=== PATIENT | female | born 2000 | race Caucasian/White ===

== ENCOUNTER 2022-06-06 01:36 | Inpatient (IN) | payer OTHER, SELFPAY ==
--- NOTE | 2022-05-17 15:04 | PC.NURSE ---
Patient wants to breast feed--explained to her if she is still doing marijuana--breast feeding will be discouraged due to it goes through the milk to baby--Patient verbalized understanding
[2022-06-06] VITALS (151 sets, daily range): BP systolic 94–134; BP diastolic 56–96; PULSE 69–109; RESP 16–18; TEMP 36.2–37; O2SAT 72–100; BMI 25.0
--- OUTSIDE RECORDS SUMMARY | 2022-06-06 02:10 | XMS_ITS ---
Author Name DonalGee paredes Address [address] [place] [address] Organization [facility] Address [address] [place] [address] Care Team Providers Care Industrial Pharmacist Name Role Phone DonalGee paredes Unavailable [phone] PROBLEMS Unknown Problems ALLERGIES No Known Allergies ENCOUNTERS Encounter Location Date Diagnosis [address] [place] [address] Feb, Dental examination Z01.20 IMMUNIZATIONS No Known Immunizations SOCIAL HISTORY Qualifiers Date Never Smoker REASON FOR REFERRAL FUNCTIONAL STATUS PLAN OF CARE Activity Details VITAL SIGNS Blood pressure systolic 101 mm Hg Blood pressure diastolic 64 mm Hg 2021-02 MEDICATIONS No Known Medications PROCEDURES Procedure Date Ordered Result Body Site INTRAORL-PERIAPICAL 1 FILM [id number] Feb 23, 2021 LTD ORAL EVALUATION - PROBLEM FOCUS Feb 23, 2021 RESULTS Name Result Date Reference Range X ray : Dental, PA - First 2021-02-23 REASON FOR VISIT Dental Problem Focus, patient denies covid symptoms, fever and has not been in contact with anyone who has tested positive for covid, pain for the last year Insurance Providers
--- NOTE | 2022-06-06 02:29 | LDADM ---
This patient, Yohannes Copeland, was admitted to Labor/Delivery/Recovery 105 on 06/06/22 at 01:36. Plans for labor, pain management and were discussed with patient. Patient/family oriented to hospital policies and general routines including ID bracelet, bed and alarms, visiting hours, pain management, procedures, bathroom and other care routines, personal items, smoking policy, room service/diet and guest tray routines, infant security routines, and visiting hours. Patient/Family are encouraged to report perceived risks to care and to ask questions if they do not understand what they are told or what they should do. See OBIX for further documentation.
[2022-06-06 03:03] LABS: Basophils Percent Auto 0.2 % (0.2-1.2); Eosinophils Absolute Auto 0.1 K/mm3 (0-0.3); Eosinophils Percent Auto 0.7 % (0-4.4); Hemoglobin 8.8 g/dL (12.0-15.0); Immature Granulocyte Absolute 0.24 K/mm3 (0.00-0.031); Immature Granulocyte Percent A 2.5 % (0-0.5); Lymphocytes Absolute Auto 2.62 K/mm3 (0.9-3.2); Lymphocytes Percent Auto 26.8 % (18.3-44.2); Mean Corpuscular HGB Conc 31.4 g/dl (32-36); Mean Corpuscular Hemoglobin 27.4 pg (26-34); Mean Corpuscular Volume 87.2 fl (80-100); Monocytes Absolute Auto 0.9 K/mm3 (0.1-0.6); Monocytes Percent Auto 9.4 % (2.6-8.5); Neutrophils Absolute Auto 5.9 K/mm3 (1.3-6.7); Neutrophils Percent Auto 60.4 % (45.5-73.1); Nucleated Red Blood Cells Absolute Auto 0.1 K/mm3 (0.0-0.012); Nucleated Red Blood Cells Perc 0.5 % (0.0-0.2); Platelet Count Result 258 k/mm3 (150-375); Red Blood Count 3.21 M/mm3 (4.2-5.4); Red Cell Distribution Width 15.8 % (11.5-14.5); White Blood Count 9.8 K/mm3 (4.5-10.0)
[2022-06-06] MEDS: LACTATED RINGERS 1,000 ML 125 ML IV CONT ×3 (03:15→10:56)
--- NOTE | 2022-06-06 03:53 | WPDANESEPP ---
Anes - Eval Pre Procedure Procedure: LAbor epidural Date/Time: 06/06/22 03:53 Surgeon: Ofelia Preop Diagnosis: Abd pain with contractions Pre Op Diagnosis: SROM Patient Data Age: 21 Gender: F Height: 1.55 m Weight: 60 kg Last Vital Signs Temp 97.4 F L 06/06/22 02:13 Pulse 86 06/06/22 03:45 Resp 16 06/06/22 02:13 BP 116/70 06/06/22 03:45 Pulse Ox 99 06/06/22 03:52 O2 Del Method Room Air 06/06/22 02:27 Allergies Allergy/AdvReac Type Severity Reaction Status Date / Time No Known Allergies Allergy Verified 05/17/22 14:42 Home Medications Medication Instructions Recorded Confirmed Type prenat.vits,stormy,bik-vgeq-rplfr 1 tablet PO DAILY 05/17/22 05/17/22 History Laboratory Tests 06/06/22 06/06/22 06/06/22 02:36 02:36 03:20 WBC 9.8 K/mm3 K/mm3 (4.5-10.0) RBC 3.21 M/mm3 L M/mm3 (4.2-5.4) Hgb 8.8 g/dL L g/dL (12.0-15.0) Hct 28.0 % L % (37.0-47.0) MCV 87.2 fl fl (80-100) MCH 27.4 pg pg (26-34) MCHC 31.4 g/dl L g/dl (32-36) RDW 15.8 % H % (11.5-14.5) Plt Count 258 k/mm3 k/mm3 (150-375) MPV 10.0 fl fl (7.4-10.4) Immature Gran % (Auto) 2.5 % H % (0-0.5) Neut % (Auto) 60.4 % % (45.5-73.1) Lymph % (Auto) 26.8 % % (18.3-44.2) [place] % (Auto) 9.4 % H % (2.6-8.5) Eos % (Auto) 0.7 % % (0-4.4) Baso % (Auto) 0.2 % % (0.2-1.2) Lymph # (Auto) 2.62 K/mm3 K/mm3 (0.9-3.2) [place] # (Auto) 0.9 K/mm3 H K/mm3 (0.1-0.6) Eos # (Auto) 0.1 K/mm3 K/mm3 (0-0.3) Baso # (Auto) 0.0 K/mm3 K/mm3 (0.0-0.1) Abs Immat Gran (auto) 0.24 K/mm3 H K/mm3 (0.00-0.031) Absolute Neuts (auto) 5.9 K/mm3 K/mm3 (1.3-6.7) Absolute Nucleated RBC 0.1 K/mm3 H K/mm3 (0.0-0.012) Nucleated RBC % 0.5 % H % (0.0-0.2) Urine Opiates Screen Pending Urine Methadone Screen Pending Ur Barbiturates Screen Pending Ur Phencyclidine Scrn Pending Ur Amphetamine Screen Pending U Benzodiazepines Scrn Pending Urine Cocaine Screen Pending U Cannabinoids Screen Pending RPR Pending Patient hx anesthesia problems: none Family hx anesthesia problems: none Results Review: All pre-operative results and documents have been reviewed as part of the pre-operative evaluation. [facility] Past Medical History Medical History Anemia Anxiety and not yet delivered Family History Family History Mother Kidney stones Grandparent Diabetes mellitus Cerebrovascular accident Social History Social History Smoking status: Never smoker Substance use: current Last use: 05/15/22 Lack of Transportation: No Lack of Food: Never True Current Housing: I Have Housing Concerned About Future Housing: No Difficulty Paying Gas/Electric Bills: No Difficulty Paying for Meds: No Currently Unemployed: YES Education: High School Diploma/GED Difficulty w/ Childcare or Family Care: No Spiritual care concerns: No Exam Day of Procedure 06/06/22 03:53 Patient weight: normal Heart: regular rate and rhythm Airway: Mallampati scale class II
[2022-06-06 04:01] LABS: Barbiturate Screen Urine Negative (Negative); Benzodiazepines Screen Urine Negative (Negative)
[2022-06-06 04:13] LABS: Amphetamine Screen Urine Negative (Negative); Cannabinoid Screen Urine Positive (Negative); Cocaine Screen Urine Negative (Negative); Methadone Screen Urine Negative (Negative); Opiate Screen Urine Negative (Negative); Phencyclidine Screen Urine Negative (Negative)
[2022-06-06] MEDS: OXYTOCIN 30 UNITS/NS 500 ML 30 UNITS/500 ML BAG 6 UNITS IV CONT (04:45)
[2022-06-06] MEDS: FAMOTIDINE 20 MG/2 ML VIAL IV PUSH (05:34)
[2022-06-06] MEDS: LORATADINE 10 MG TABLET PO (08:30)
[2022-06-06] MEDS: OXYTOCIN 30 UNITS/NS 500 ML 30 UNITS/500 ML BAG 125 UNITS IV CONT (12:12)
--- NOTE | 2022-06-06 13:56 | PM.OBPRVD ---
OB - Delivery Note Procedure Delivery date: 06/06/22 Procedure: Induction method: None Delivery augmentation: Pitocin Laceration Description: Perineal - 1st Degree and Labial Delivery repair: vicryl Quantitative Blood Loss (ml): 100 Anesthesia type: Epidural Baby Date of : 06/06/22 Time of : 11:38 Weeks of gestation at delivery: 39 Weight (pounds): 6 Weight (ounces): 10 score one minute: 9 score five minutes: 9
[2022-06-06] MEDS: WITCH HAZEL 40 PADS 1 PAD TOPICAL (14:24)
[2022-06-06] MEDS: IBUPROFEN 600 MG TABLET PO (15:10)
[2022-06-06] MEDS: DOCUSATE SODIUM 100 MG CAPSULE PO (15:10)
[2022-06-06] MEDS: POLYSACCHARIDE IRON COMPLEX 150 MG CAPSULE PO (15:11)
[2022-06-06] MEDS: LANOLIN (LANSINOH) 7.5 GM CREAM 1 APPLIC TOPICAL (15:12)
--- NOTE | 2022-06-06 15:20 | PC.NURSE ---
Patient transferred to post room #284 via ( w/c ). Support person present. Oriented to unit, room, information board, rooming in, admission packet and security measures. Patient verbalizes understanding.
[2022-06-07 04:48] VITALS: BP 94/58; PULSE 86; RESP 18; TEMP 36.8; O2SAT 99
[2022-06-07 04:54] LABS: Hematocrit 26.4 % (37.0-47.0); Hemoglobin 8.2 g/dL (12.0-15.0)
--- NOTE | 2022-06-07 06:26 | PM.OBDSVD ---
DS: Admitting Diagnosis Discharge Date 06/07/22 Admitting Diagnosis term pregnacy OB - DS: Summary OB Procedures : None OB Procedures Intrapartum: Spontaneous Vag Delivery OB Procedures: : None Time Spent with Patient Time attestation: Total time spent providing and/or coordinating discharge services: DS: Data Data Completed and Pending Labs on day of discharge: Labs from last 24 hours 06/07/22 04:20 Hgb 8.2 L Hct 26.4 L Discharge Plan Discharge Discharging Clinician: Eric Charles Patient Disposition: Home, Self-Care Activity: pelvic rest Diet: regular Patient Instructions: Antibiotic Form Stand Alone Forms: General Discharge Information Follow-up/Referrals: Eric Charles MD [Physician] - Discharge Medications: Continued #2 Tablet 1 tablet PO DAILY Date of admission: 06/06/22 01:36 Primary Care Provider: UNKNOWN,DOCTOR Admitting Provider: Erna Gilbert Attending physician on admission: Erna Gilbert Condition: Stable
--- NOTE | 2022-06-07 06:28 | PM.OBPNVD ---
OB - PN: Subj Subjective Date/time seen: 06/07/22 06:28 Patient comments: no complaints, pain well controlled and tolerating diet OB - PN: Obj Data Labs 06/07/22 04:20 Labs: Laboratory Results - last 24 hr 06/07/22 04:20 Hgb 8.2 L Hct 26.4 L OB - PN A/P Plan day: 2 Plan: routine care and discharge home Time Spent With Patient Time: Total time spent is greater than 50% in coordination of care (as documented) at patient's floor/unit and/or counseling patient: Exam Const: General: comfortable and no acute distress Resp: Effort & Inspection: normal respiratory effort Auscultation: no rales, no rhonchi and no wheezes Cardio: Rate: regular rate Heart sounds: no click, no murmurs and no rubs GI: GI Palp: Yes Soft to palpation and No Tenderness to palpation present (GI) Auscultation: normal bowel sounds Extrem: General: normal to inspection, no pedal edema and no calf tenderness
[2022-06-07 08:05] VITALS: BP 111/74; PULSE 85; RESP 16; TEMP 36.9; O2SAT 99
[2022-06-07 08:06] LABS: Rapid Plasma Reagin Non-Reactive (NonReactive)
[2022-06-07] MEDS: IBUPROFEN 600 MG TABLET PO ×2 (10:10→16:57)
[2022-06-07] MEDS: MULTIVIT/MIN/PREN/FOL AC/IRON TABLET 1 TAB PO (10:11)
[2022-06-07] MEDS: POLYSACCHARIDE IRON COMPLEX 150 MG CAPSULE PO ×2 (10:11→16:57)
[2022-06-07] MEDS: DOCUSATE SODIUM 100 MG CAPSULE PO (10:12)
--- NOTE | 2022-06-07 15:27 | PC.NURSE ---
[id number] Introductions were made, then consulted with patient to assess needs related to . Mother led the conversation with her?plans to feed?her infant and the?experience so far with no pain. Resources provided for inpatient and outpatient services using mom/baby guide. Mother voiced understanding of information and requests assistance. Mother works well with her infant with encouragement and education. Encouraged understanding of the benefits of skin to skin (unwrapping and placing vertically on her chest), responsive feeding and how to watch for early feeding signs, frequency of feeding on demand about every 8-12 times in 24 hours (every 2-3 hours), milk production, duration of feeding, signs of adequate intake/output and how to record on the feeding sheet. Reviewed positioning and ear, shoulder, hip alignment, supporting the breast, asymmetrical latch (off-center), and leading with the chin with a big open side gape. latched optimally to the left breast in cross cradle position. Education given to mother of how to visualize suck/swallow ratios and drinking at the breast. was able to maintain latch without discomfort to mother. Nipple care reviewed with optimal latch and good positioning. Resources used to facilitate learning were used with the tool, mom and baby guide. Mother voiced understanding of responsive feedings, stimulating with skin to skin, touch, talking to infant to encourage if it has been 2 -3 hours since the start of the last , to call if infant does not latch or there is discomfort with . Reported to the primary RN.
[2022-06-07 20:45] VITALS: BP 115/74; PULSE 81; RESP 16; TEMP 36.6; O2SAT 100
[2022-06-08 07:10] VITALS: BP 118/78; PULSE 68; RESP 16; TEMP 37.1; O2SAT 98
--- NOTE | 2022-06-08 08:04 | PM.OBPNVD ---
OB - PN: Subj Subjective Date/time seen: 06/08/22 08:04 Patient comments: no complaints, pain well controlled and tolerating diet OB - PN: Obj Data Labs 06/07/22 04:20 Labs: Laboratory Results - last 24 hr 06/06/22 02:36 RPR Non-reactive OB - PN A/P Plan day: 2 Plan: routine care and discharge home Time Spent With Patient Time: Total time spent is greater than 50% in coordination of care (as documented) at patient's floor/unit and/or counseling patient: Exam Const: General: comfortable and no acute distress Resp: Effort & Inspection: normal respiratory effort Auscultation: no rales, no rhonchi and no wheezes Cardio: Rate: regular rate Heart sounds: no click, no murmurs and no rubs GI: GI Palp: Yes Soft to palpation and No Tenderness to palpation present (GI) Auscultation: normal bowel sounds Extrem: General: normal to inspection, no pedal edema and no calf tenderness
--- NOTE | 2022-06-08 08:05 | PM.OBDSVD ---
DS: Admitting Diagnosis Discharge Date 05/08/23 Admitting Diagnosis Term preganancy OB - DS: Summary OB Procedures : None OB Procedures Intrapartum: Spontaneous Vag Delivery OB Procedures: : None Time Spent with Patient Time attestation: Total time spent providing and/or coordinating discharge services: DS: Data Data Completed and Pending Labs on day of discharge: Labs from last 24 hours 06/06/22 02:36 RPR Non-reactive Discharge Plan Discharge Discharging Clinician: Eric Charles Patient Disposition: Home, Self-Care Activity: pelvic rest Diet: regular Stand Alone Forms: General Discharge Information Follow-up/Referrals: Eric Charles MD [Physician] - Discharge Medications: Continued #2 Tablet 1 tablet PO DAILY Date of admission: 06/06/22 01:36 Primary Care Provider: UNKNOWN,DOCTOR Admitting Provider: Erna Gilbert Attending physician on admission: Erna Gilbert Condition: Stable
[2022-06-08] MEDS: IBUPROFEN 600 MG TABLET PO (09:13)
[2022-06-08] MEDS: POLYSACCHARIDE IRON COMPLEX 150 MG CAPSULE PO (09:14)
[2022-06-08] MEDS: MULTIVIT/MIN/PREN/FOL AC/IRON TABLET 1 TAB PO (09:14)
[2022-06-08] MEDS: DOCUSATE SODIUM 100 MG CAPSULE PO (09:14)
--- NOTE | 2022-06-08 13:15 | PC.NURSE ---
[id number] Mother led the conversation with her experience and plan to feed her so far and her ability to independently latch optimally without discomfort. RN encouraged skin to skin and mother demonstrated independently latching her optimally to the right breast using cross cradle and states has gone better since working with RN. Mother denies pain with and is feeding appropriately for growth of and understands stimulating infant to eat if needed. Infant has had adequate feedings in the last 24 hours meets the outcomes for weight, output and jaundice at this time. Mother states she is confident to continue effectively her at home or when to call for assistance and denies any additional assistance or education at this time. Mother states she doesn't plan on using cannabis with and was advised to not use while her infant. Reinforced understanding of milk production, transition of milk, signs of adequate intake, prevention/relief of engorgement, responsive after visualizing feeding cues, the different methods of stimulating to breastfeed 2-3 hours after the start of the last feeding, community resources, medication information reviewed per [facility] and when to call a provider using the mom and baby guide. Mother voiced understanding of the education shared. Reported to the primary RN.
--- NOTE | 2022-06-08 15:08 | PC.NURSE ---
[id number] Patient was given the opportunity to view the discharge video Mother & Baby Care, The First Two Weeks and to ask questions. Patient declined viewing the video and has been given the mother/baby guide for home reference. Will view this at home.
[2022-06-09 11:07] VITALS: BP 114/75; PULSE 95; RESP 16; TEMP 37.2; O2SAT 99
== END 2022-06-08 14:20 | disposition home or self-care (01) | DRG 663 ==
LOC: ANHLDR 02:12 → ANHOB2 06-07 06:27 → ANHLDR 06-10 06:41 → ANHOB2 06-10 06:41
PROVIDERS: Admitting Provider Obstetrics & Gynecology; Visit Provider Obstetrics & Gynecology
DX: D64.9 Anemia, unspecified (principal); O99.02 Anemia complicating childbirth; O36.8330 Maternal care for abnormalities of the fetal heart rate or rhythm, third trimester, not applicable or unspecified; O70.0 First degree perineal laceration during delivery; Z37.0 Single live birth; Z3A.39 39 weeks gestation of pregnancy
CPT/HCPCS: 36415; 80307; 84112; 85014; 85018; 85025; 86592; 86850; 86900; 86901; A9270; J2590; J2795; J7120

== ENCOUNTER 2024-06-01 06:01 | Inpatient (IN) | payer OTHER, SELFPAY ==
[2024-06-01] VITALS (123 sets, daily range): BP systolic 84–128; BP diastolic 44–100; PULSE 64–108; RESP 14–16; TEMP 36.3–37.3; O2SAT 90–100; BMI 25.8
--- NOTE | 2024-06-01 06:32 | LDADM ---
This patient, Yohannes Copeland, was admitted to Labor/Delivery/Recovery 104 on 06/01/24 at 06:01. Plans for labor, pain management and were discussed with patient. Patient/family oriented to hospital policies and general routines including ID bracelet, bed and alarms, visiting hours, pain management, procedures, bathroom and other care routines, personal items, smoking policy, room service/diet and guest tray routines, infant security routines, and visiting hours. Patient/Family are encouraged to report perceived risks to care and to ask questions if they do not understand what they are told or what they should do. See OBIX for further documentation.
--- NOTE | 2024-06-01 06:47 | WPDANESEPP ---
Anes - Eval Pre Procedure Procedure: labor epidural Date/Time: 06/01/24 06:47 Surgeon: adeline Preop Diagnosis: pain during labor Pre Op Diagnosis: Induction of Labor Patient Data Age: 23 Gender: F Height: 1.55 m Weight: 62 kg Last Vital Signs Pulse 83 06/01/24 06:36 BP 98/64 L 06/01/24 06:36 O2 Del Method Room Air 06/01/24 06:31 Allergies Allergy/AdvReac Type Severity Reaction Status Date / Time No Known Allergies Allergy Verified 05/12/24 12:04 Home Medications ?Medication ?Instructions ?Recorded ?Confirmed ?Type prenat.vits,stormy,sno-uoov-fyayb 1 tablet PO DAILY 05/17/22 06/01/24 History Laboratory Tests 06/01/24 06:20 WBC Pending RBC Pending Hgb Pending Hct Pending MCV Pending MCH Pending MCHC Pending RDW Pending Plt Count Pending MPV Pending Immature Gran % (Auto) Pending Neut % (Auto) Pending Lymph % (Auto) Pending [place] % (Auto) Pending Eos % (Auto) Pending Baso % (Auto) Pending Lymph # (Auto) Pending [place] # (Auto) Pending Eos # (Auto) Pending Baso # (Auto) Pending Abs Immat Gran (auto) Pending Absolute Neuts (auto) Pending Absolute Nucleated RBC Pending Nucleated RBC % Pending RPR Pending HIV 1&2 Ab/P24 Ag 4thGn Pending Patient hx anesthesia problems: none Family hx anesthesia problems: none Results Review: All pre-operative results and documents have been reviewed as part of the pre-operative evaluation. [facility] Past Medical History Medical History Anemia Anxiety and not yet delivered Family History Family History Mother Kidney stones Grandparent Diabetes mellitus Cerebrovascular accident Social History Social History Smoking status: Former smoker Tobacco type: e-cigarettes/vaping Second hand tobacco smoke exposure: No Substance use: never Last use: 05/15/22 Do You Feel Safe in your Home?: Yes Lack of Transportation: No Lack of Food: Never True Current Housing: I Have Housing Concerned About Future Housing: No Difficulty Paying Gas/Electric Bills: No Difficulty Paying for Meds: No Currently Unemployed: No Education: High School Diploma/GED Difficulty w/ Childcare or Family Care: No Spiritual care concerns: No Exam Day of Procedure 06/01/24 06:47
[2024-06-01 06:48] LABS: Basophils Percent Auto 0.4 % (0.2-1.2); Eosinophils Absolute Auto 0.2 K/mm3 (0-0.3); Eosinophils Percent Auto 2.6 % (0-4.4); Hematocrit 31.5 % (37.0-47.0); Hemoglobin 10.4 g/dL (12.0-15.0); Immature Granulocyte Absolute 0.06 K/mm3 (0.00-0.031); Immature Granulocyte Percent A 0.6 % (0-0.5); Lymphocytes Absolute Auto 2.63 K/mm3 (0.9-3.2); Lymphocytes Percent Auto 28.3 % (18.3-44.2); Mean Corpuscular Hemoglobin 29.6 pg (26-34); Mean Corpuscular Volume 89.7 fl (80-100); Mean Platelet Volume 9.4 fl (7.4-10.4); Monocytes Absolute Auto 0.7 K/mm3 (0.1-0.6); Monocytes Percent Auto 7.3 % (2.6-8.5); Neutrophils Absolute Auto 5.6 K/mm3 (1.3-6.7); Neutrophils Percent Auto 60.8 % (45.5-73.1); Platelet Count Result 204 k/mm3 (150-375); Red Blood Count 3.51 M/mm3 (4.2-5.4); Red Cell Distribution Width 14.1 % (11.5-14.5); White Blood Count 9.3 K/mm3 (4.5-10.0)
[2024-06-01] MEDS: LACTATED RINGERS 1,000 ML 125 ML IV CONT ×2 (07:17→09:46)
[2024-06-01] MEDS: OXYTOCIN 30 UNITS/NS 500 ML 30 UNITS/500 ML BAG IV CONT (07:18)
[2024-06-01 07:25] LABS: Rapid Plasma Reagin Non-Reactive (NonReactive)
[2024-06-01 07:37] LABS: HIV 1/2 Ab P24 Ag Result Negative (Negative)
--- NOTE | 2024-06-01 12:31 | PM.IMHP ---
H&P: HPI History of Present Illness Date/Time: 06/01/24 12:31 Chief Complaint: elective induction of labor Narrative: Patient is a 23 year old who presents for induction of labor. her has been uncomplicated. She denies strong contractions, leakage of fluid or vaginal bleeding. She reports good movement. Review of Systems Review of Systems: All systems reviewed & are unremarkable except as noted in HPI and below PMFSH Past Medical History Medical History Anxiety Anemia and not yet delivered Family History Family History Mother Kidney stones Grandparent Diabetes mellitus Cerebrovascular accident Social History Social History Smoking status: Former smoker Tobacco type: e-cigarettes/vaping Second hand tobacco smoke exposure: No Substance use: never Last use: 05/15/22 Do You Feel Safe in your Home?: Yes Lack of Transportation: No Lack of Food: Never True Current Housing: I Have Housing Concerned About Future Housing: No Difficulty Paying Gas/Electric Bills: No Difficulty Paying for Meds: No Currently Unemployed: No Education: High School Diploma/GED Difficulty w/ Childcare or Family Care: No Spiritual care concerns: No Meds Home Medications and Allergies Home Medications ?Medication ?Instructions ?Recorded ?Confirmed ?Type prenat.vits,stormy,nru-edoc-igcyr 1 tablet PO DAILY 05/17/22 06/01/24 History Allergies Allergy/AdvReac Type Severity Reaction Status Date / Time No Known Allergies Allergy Verified 05/12/24 12:04 Vital Signs Vital Signs - 24 hr 06/01/24 06:31 06/01/24 06:36 06/01/24 07:30 Temperature 97.8 F Pulse Rate 83 Respiratory Rate 16 Blood Pressure 98/64 L Pulse Oximetry Oxygen Delivery Room Air 06/01/24 08:39 06/01/24 08:45 06/01/24 09:00 Temperature Pulse Rate 90 85 79 Respiratory Rate Blood Pressure 128/73 117/74 103/58 L Pulse Oximetry Oxygen Delivery 06/01/24 09:15 06/01/24 09:21 06/01/24 09:26 Temperature Pulse Rate 88 Respiratory Rate Blood Pressure 111/67 Pulse Oximetry 99 99 Oxygen Delivery 06/01/24 09:31 06/01/24 09:36 06/01/24 09:41 Temperature Pulse Rate 82 Respiratory Rate Blood Pressure 105/86 Pulse Oximetry 99 96 97 Oxygen Delivery 06/01/24 09:42 06/01/24 09:43 06/01/24 09:45 Temperature Pulse Rate 83 83 76 Respiratory Rate Blood Pressure 114/62 109/68 103/59 L Pulse Oximetry Oxygen Delivery 06/01/24 09:46 06/01/24 09:47 06/01/24 09:48 Temperature 97.4 F L Pulse Rate 83 Respiratory Rate Blood Pressure 104/63 Pulse Oximetry 96 Oxygen Delivery 06/01/24 09:51 06/01/24 09:52 06/01/24 09:55 Temperature Pulse Rate 81 88 Respiratory Rate Blood Pressure 100/62 109/69 Pulse Oximetry 95 Oxygen Delivery 06/01/24 09:56 06/01/24 09:57 06/01/24 10:01 Temperature Pulse Rate 84 81 Respiratory Rate Blood Pressure 107/66 114/84 Pulse Oximetry 100 98 Oxygen Delivery 06/01/24 10:04 06/01/24 10:06 06/01/24 10:07 Temperature Pulse Rate 85 77 Respiratory Rate Blood Pressure 106/64 116/67 Pulse Oximetry 97 Oxygen Delivery 06/01/24 10:09 06/01/24 10:11 06/01/24 10:13 Temperature Pulse Rate 81 82 Respiratory Rate Blood Pressure 117/69 117/100 H Pulse Oximetry 98 Oxygen Delivery 06/01/24 10:15 06/01/24 10:16 06/01/24 10:19 Temperature Pulse Rate 79 78 75 Respiratory Rate Blood Pressure 117/63 107/64 105/77 Pulse Oximetry 99 95 Oxygen Delivery 06/01/24 10:20 06/01/24 10:21 06/01/24 10:24 Temperature Pulse Rate 80 88 Respiratory Rate Blood Pressure 111/72 97/74 L Pulse Oximetry 98 Oxygen Delivery 06/01/24 10:25 06/01/24 10:28 06/01/24 10:30 Temperature Pulse Rate 89 78 Respiratory Rate Blood Pressure 104/60 105/64 Pulse Oximetry 99 99 Oxygen Delivery 06/01/24 10:33 06/01/24 10:35 06/01/24 10:36 Temperature Pulse Rate 82 91 Respiratory Rate Blood Pressure 106/61 102/65 Pulse Oximetry 99 Oxygen Delivery 06/01/24 10:40 06/01/24 10:42 06/01/24 10:45 Temperature Pulse Rate 87 87 Respiratory Rate Blood Pressure 84/51 L 107/65 Pulse Oximetry 99 99 Oxygen Delivery 06/01/24 10:45 06/01/24 10:45 06/01/24 10:50 Temperature Pulse Rate Respiratory Rate Blood Pressure Pulse Oximetry 99 99 99 Oxygen Delivery 06/01/24 10:52 06/01/24 10:54 06/01/24 10:59 Temperature Pulse Rate Respiratory Rate Blood Pressure Pulse Oximetry 98 96 90 Oxygen Delivery 06/01/24 11:01 06/01/24 11:04 06/01/24 11:09 Temperature Pulse Rate 70 Respiratory Rate Blood Pressure 85/47 L Pulse Oximetry 95 96 Oxygen Delivery 06/01/24 11:14 06/01/24 11:16 06/01/24 11:19 Temperature Pulse Rate 72 Respiratory Rate Blood Pressure 93/56 L Pulse Oximetry 96 97 Oxygen Delivery 06/01/24 11:24 06/01/24 11:29 06/01/24 11:30 Temperature Pulse Rate 68 Respiratory Rate Blood Pressure 84/46 L Pulse Oximetry 96 96 Oxygen Delivery 06/01/24 11:34 06/01/24 11:35 06/01/24 11:40 Temperature Pulse Rate Respiratory Rate Blood Pressure Pulse Oximetry 97 95 97 Oxygen Delivery 06/01/24 11:45 06/01/24 11:50 06/01/24 11:54 Temperature Pulse Rate 85 Respiratory Rate Blood Pressure 106/68 Pulse Oximetry 97 99 95 Oxygen Delivery 06/01/24 11:59 06/01/24 12:00 06/01/24 12:04 Temperature Pulse Rate 73 Respiratory Rate Blood Pressure 109/74 Pulse Oximetry 96 97 Oxygen Delivery 06/01/24 12:09 06/01/24 12:14 06/01/24 12:15 Temperature Pulse Rate 75 Respiratory Rate Blood Pressure 110/68 Pulse Oximetry 96 97 Oxygen Delivery 06/01/24 12:19 06/01/24 12:22 06/01/24 12:27 Temperature Pulse Rate Respiratory Rate Blood Pressure Pulse Oximetry 96 94 99 Oxygen Delivery 06/01/24 12:31 Temperature Pulse Rate 72 Respiratory Rate Blood Pressure 118/85 Pulse Oximetry Oxygen Delivery Exam Const: General: comfortable and no acute distress HENMT: Mouth: Yes moist mucous membranes Eyes: General: appearance normal, both eyes and all related structures Resp: Effort & Inspection: normal respiratory effort : Other: SVE 4/80/-2, AROM of clear fluid Skin: General skin exam: normal color Extrem: General: normal to inspection Psych: Mental Status: mental status grossly normal H&P: Results Labs Labs: Short CBC 06/01/24 Range/Units 06:20 WBC 9.3 (4.5-10.0) K/mm3 Hgb 10.4 L (12.0-15.0) g/dL Hct 31.5 L (37.0-47.0) % Plt Count 204 (150-375) k/mm3 Assessment and Plan Assessment and plan (1) Encounter for elective induction of labor: Code(s): Z34.90 - Encounter for supervision of normal , unspecified, unspecified trimester Status: Acute Assessment and Plan: - pitocin per protocol - AROM of clear fluid - FHR category I
[2024-06-01] MEDS: OXYTOCIN 30 UNITS/NS 500 ML 30 UNITS/500 ML BAG 125 UNITS IV CONT (15:48)
--- NOTE | 2024-06-01 16:39 | PM.OBPRVD ---
OB - Vaginal Delivery Note Procedure Delivery date: 06/01/24 Events: Elective Induction of Labor Induction method: Per Pitocin Protocol Delivery augmentation: Rupture of Membranes Delivery monitor: External FHT and External Uterine Route of delivery: Episiotomy description: None Laceration Description: Perineal - 1st Degree (hemostatic without repair) Specimen: No Quantitative Blood Loss (ml): 50 Anesthesia type: Epidural Disposition: Floor Complications: No immediate complications Narrative: See H&P and notes for details on patient's admission and labor. She progressed to complete cervical dilation and at the appropriate time began pushing. With adequate expulsive efforts by the mother, the baby's head was delivered without difficulty. Nuchal cord was present x1 and was easily reduced. The baby's right shoulder was anterior and delivered under the pubic symphysis without difficulty. The posterior shoulder and the rest of the baby delivered without difficulty. The umbilical cord was doubly clamped and cut after 60 seconds of delayed cord clamping. Care of the infant was then assumed by the nursing staff. [place] Baby Date of : 06/01/24 Time of : 15:00 Gestational Age by Date: 39 gender: Female presentation: vertex position: Left Occiput Anterior Placenta delivery description: Expressed Cord Vessel Description: 3 Vessels, Nuchal Cord, Reduced and Delayed Cord Clamping
[2024-06-01] MEDS: ACETAMINOPHEN 325 MG TABLET 650 MG PO (21:14)
[2024-06-01] MEDS: IBUPROFEN 600 MG TABLET PO (21:14)
[2024-06-02] MEDS: ACETAMINOPHEN 325 MG TABLET 650 MG PO ×2 (04:00→11:07)
[2024-06-02] MEDS: IBUPROFEN 600 MG TABLET PO ×2 (04:00→11:06)
[2024-06-02 04:15] VITALS: BP 124/80; PULSE 83; RESP 16; TEMP 37.2; O2SAT 100
[2024-06-02 04:49] LABS: Hematocrit 33.6 % (37.0-47.0); Hemoglobin 10.8 g/dL (12.0-15.0)
--- NOTE | 2024-06-02 06:51 | WPDANLDPN2 ---
Anes-Prog Note L&D Date/Time: 06/02/24 06:51 Comfortable throughout: labor and delivery Neuraxial method: epidural Epidural/Spinal procedure site: clean & non-tender Neuro status: Neuro function grossly intact. Cardiovascular status: normal Respiratory status: normal Airway patency: baseline Mental status: baseline Post-Op hydration status: normal Vital Signs: Last Vital Signs Temp 37.2 C 06/02/24 04:15 Pulse 83 06/02/24 04:15 Resp 16 06/02/24 04:15 BP 124/80 06/02/24 04:15 Pulse Ox 100 06/02/24 04:15 O2 Del Method Room Air 06/01/24 06:31 Pain score (VAS): 1 I/O: Intake & Output 06/01/24 06/01/24 06/02/24 15:59 23:59 07:59 Intake Total 1500 100 Output Total 50 Balance 1500 50 Post-procedural complaints: none Patient feedback: Patient satisfied with anesthetic care.
--- NOTE | 2024-06-02 07:19 | P.PNOB_ITS ---
OB - PN: Subj Subjective Date/time seen: 06/02/24 07:19 Patient comments: no complaints, pain well controlled, incisional pain, tolerating diet and flatus present OB - PN: Obj Data Labs 06/02/24 04:35 Labs: Laboratory Results - last 24 hr 06/01/24 06/02/24 06:20 04:35 Hgb 10.8 L Hct 33.6 L RPR Non-reactive HIV 1&2 Ab/P24 Ag 4thGn Negative Blood Type O Positive Antibody Screen Negative OB - PN A/P Plan day: 1 Plan: routine care Comments: No problems, routine care Time Spent With Patient Time: Total time spent is greater than 50% in coordination of care (as documented) at patient's floor/unit and/or counseling patient: Exam 2 Const: General: comfortable, no acute distress and alert Resp: Effort & Inspection: normal respiratory effort Auscultation: no crackles, no rales and no rhonchi Cardio: Rate: regular rate Heart sounds: no click, no murmurs and no rubs GI: Inspection: non-distended GI Palp: No Tenderness to palpation present (GI) Auscultation: normal bowel sounds Other: Incision - CDI Extrem: General: normal to inspection, no pedal edema and no calf tenderness
[2024-06-02 08:15] VITALS: BP 101/55; PULSE 69; RESP 18; TEMP 36.4; O2SAT 99
[2024-06-02] MEDS: MULTIVIT/MIN/PREN/FOL AC/IRON TABLET 1 TAB PO (08:39)
[2024-06-05 11:35] VITALS: BP 113/75; PULSE 83; RESP 18; TEMP 36.8; O2SAT 100
== END 2024-06-02 18:39 | disposition home or self-care (01) | DRG 560 ==
LOC: ANHLDR 06:07 → ANHOB2 18:11
PROVIDERS: Admitting Provider Obstetrics & Gynecology; Visit Provider Obstetrics & Gynecology
DX: O69.81X0 Labor and delivery complicated by cord around neck, without compression, not applicable or unspecified (principal); Z37.0 Single live birth; Z3A.39 39 weeks gestation of pregnancy; O70.0 First degree perineal laceration during delivery
CPT/HCPCS: 36415; 85014; 85018; 85025; 86592; 86703; 86850; 86900; 86901; A9270; G0432; J2590; J2795; J7120